=== PATIENT | male | born 1965 | race Caucasian/White ===

== ENCOUNTER 2016-07-03 00:34 | Emergency (ER) | payer BC ==
[2016-07-03] MEDS ORDERED: PROMETHAZINE HCL 25 MG/ML VIAL IVP ONE (00:52)
[2016-07-03] MEDS ORDERED: HYDROMORPHONE HCL 1 MG/ML CPJ IVP ONE ×2 (00:52→01:48)
[2016-07-03 01:30] LABS: BASO % 0.3 % (0-6); GRAN % 76.9 % (47-80); HEMOGLOBIN 15.1 gm/dl (14.0-18.0); LYMPH % 10.7 % (16-45); MEAN CORPUSCULAR HEMOGLOBIN 31.2 pg (27-33); MEAN CORPUSCULAR HGB CONC 33.6 g/dl (32-36); MEAN PLATELET VOLUME 10.8 fl (7.4-10.4); MONO % 10.1 % (0-9); PLATELET COUNT 168 K/uL (130-400); RED BLOOD COUNT 4.84 M/uL (4.40-5.70)
[2016-07-03 01:44] LABS: ANION GAP 11.3 (7-16); BLOOD UREA NITROGEN 15 mg/dL (9-20); CARBON DIOXIDE 26.7 mmol/L (22-30); CREATININE 0.8 mg/dL (0.66-1.25); EST GLOMERULAR FILTRATION RATE > 60 ml/min; GLUCOSE,RANDOM 116 mg/dL (70-110)
--- NOTE | 2016-07-03 02:17 | Emergency Department Record ---
History of Present Illness - General Chief Complaint: Knee injury Stated Complaint: RIGHT KNEE PAIN Time Seen by Provider: 07/03/16 00:47 Source: Patient Mode of Arrival: EMS Limitations: No limitations - History of Present Illness Initial Comments: pt has had knee pain this week which has fotten much worse. he doesnt recall injury but did mow the lawn. he states the knee initially felt like it needed to pop and now it feels like it is going to give out and is unstable. it also has swelling. Complaint: Knee injury Onset/Timin -: Days(s) Injury: Knee: Right Severity: Mild Severity scale (1-10): 4 Improves With: Rest Worsens With: Movement, Palpation, Weight bearing - Related Data Home Medications Medication Instructions Recorded Confirmed Last Taken Atorvastatin Calcium 20 mg PO DAILY 07/03/16 07/03/16 Unknown Quetiapine Fumarate [Seroquel] 12.5 mg PO BID 07/03/16 07/03/16 Unknown Sertraline HCl [Zoloft] 100 mg PO DAILY 07/03/16 07/03/16 Unknown Previous Rx's Medication Instructions Recorded Hydrocodone/Acetaminophen [[place] 1 each PO QID #10 tablet 07/03/16 5-325 Tablet] Allergies Allergy/AdvReac Type Severity Reaction Status Date / Time bupropion HCl Allergy Intermediate HIVES Unverified 07/24/15 08:50 [From Wellbutrin] azithromycin Allergy Mild RASH Unverified 07/24/15 08:50 Penicillins Allergy Mild HIVES Unverified 07/24/15 08:50 Sulfa (Sulfonamide Allergy Mild RASH Unverified 07/24/15 08:50 Antibiotics) Travel Screening - Travel/Exposure Within Last 30 Days Have you traveled within the last 30 days?: No - Travel/Exposure Within Last Year Have you traveled outside the [place] in the last year?: No - Additonal Travel Details Have you been exposed to anyone with a communicable illness?: No - Travel Symptoms Symptom Screening: None Review of Systems Reviewed: No additional complaints except as noted below Constitutional: Reports: As per HPI. Denies: Chills, Fever, Malaise, Night sweats, Weakness, Weight change Eyes: Reports: As per HPI. Denies: Eye discharge, Eye pain, Photophobia, Vision change ENT: Reports: As per HPI. Denies: Congestion, Dental pain, Ear pain, Epistaxis , Hearing loss, Throat pain Respiratory: Reports: As per HPI. Denies: Cough, Dyspnea, Hemoptysis, Stridor, Wheezes Cardiovascular: Reports: As per HPI. Denies: Arrhythmia, Chest pain, Dyspnea on exertion, Edema, Murmurs, Orthopnea, Palpitations, Paroxysmal nocturnal dyspnea, Rheumatic Fever, Syncope Endocrine: Reports: As per HPI. Denies: Fatigue, Heat or cold intolerance, Polydipsia, Polyuria Gastrointestinal: Reports: As per HPI. Denies: Abdominal pain, Constipation, Diarrhea, Hematemesis, Hematochezia, Melena, Nausea, Vomiting Genitourinary: Reports: As per HPI. Denies: Dysuria, Frequency, Hematuria, Incontinence, Retention, Testicular pain, Testicular mass, Urgency Musculoskeletal: Reports: As per HPI. Denies: Arthralgia, Back pain, Gout, Joint swelling, Myalgia, Neck pain Skin: Reports: As per HPI. Denies: Bruising, Change in color, Change in hair/ nails, Lesions, Pruritus, Rash Neurological: Reports: As per HPI. Denies: Abnormal gait, Confusion, Headache, Numbness, Paresthesias, Seizure, Tingling, Tremors, Vertigo, Weakness Psychiatric: Reports: As per HPI. Denies: Anxiety, Auditory hallucinations, Depression, Homicidal thoughts, Suicidal thoughts, Visual hallucinations Hematological/Lymphatic: Reports: As per HPI. Denies: Anemia, Blood Clots, Easy bleeding, Easy bruising, Swollen glands Past Medical History - SOCIAL HISTORY Smoking Status: Never smoker Alcohol Use: None Drug Use: Occassional Drug Use Detail:: Marijuana - RESPIRATORY Hx Respiratory Disorders: No - CARDIOVASCULAR Hx Cardio Disorders: Yes Comment:: high cholesterol - NEURO Hx Neuro Disorders: No - GI Hx GI Disorders: No - Hx Genitourinary Disorders: No - ENDOCRINE Hx Endocrine Disorders: No - MUSCULOSKELETAL Hx Musculoskeletal Disorders: No - PSYCH Hx Psych Problems: No - HEMATOLOGY/ONCOLOGY Hx Hematology/Oncology Disorders: No Family Medical History Any Significant Family History?: No Physical Exam - General General Appearance: Alert, Oriented x3, Cooperative, Mild distress - Head Head exam: Normal inspection - Eye Eye exam: Normal appearance, PERRL, EOMI Pupils: Normal accommodation - ENT ENT exam: Normal exam, Mucous membranes moist, Normal external ear exam, Normal orophraynx Ear exam: Normal external inspection. negative: External canal tenderness Nasal Exam: Normal inspection. negative: Discharge, Sinus tenderness Mouth exam: Normal external inspection, Tongue normal Teeth exam: Normal inspection. negative: Dental caries Throat exam: Normal inspection. negative: Tonsillar erythema, Tonsillar exudate - Neck Neck exam: Normal inspection, Full ROM. negative: Tenderness - Respiratory Respiratory exam: Normal lung sounds bilaterally. negative: Respiratory distress - Cardiovascular Cardiovascular Exam: Regular rate, Normal rhythm, Normal heart sounds - GI/Abdominal GI/Abdominal exam: Soft, Normal bowel sounds. negative: Tenderness - Rectal Rectal exam: Deferred - exam: Deferred - Extremities Extremities exam: Joint swelling, Normal capillary refill, Tenderness. negative : Full ROM - Back Back exam: Reports: Normal inspection, Full ROM. Denies: Muscle spasm, Rash noted, Tenderness - Neurological Neurological exam: Alert, CN II-XII intact, Normal gait, Oriented X3 - Psychiatric Psychiatric exam: Normal affect, Normal mood - Skin Skin exam: Dry, Intact, Normal color, Warm Course Vital Signs 07/03/16 07/03/16 00:39 01:42 Temperature 99.8 F H 99.6 F Pulse Rate 92 H Pulse Rate [ 85 Pulse Ox Probe] Respiratory 20 20 Rate Blood Pressure 140/93 Blood Pressure 118/72 [Left Arm] Pulse Ox 96 96 Medical Decision Making - Lab Data Result diagrams: 07/03/16 01:06 07/03/16 01:06 Lab Results 07/03/16 07/03/16 Range/Units 01:06 01:06 WBC 12.0 (4.2-12.2) K/uL RBC 4.84 (4.40-5.70) M/uL Hgb 15.1 (14.0-18.0) gm/dl Hct 45.0 (42.0-52.0) % MCV 93.0 (81-97) fl MCH 31.2 (27-33) pg MCHC 33.6 (32-36) g/dl RDW 13.0 (11.5-14.5) % Plt Count 168 (130-400) K/uL MPV 10.8 H (7.4-10.4) fl Gran % 76.9 (47-80) % Lymphocytes % 10.7 L (16-45) % Monocytes % 10.1 H (0-9) % Eosinophils % 2.0 (0-6) % Basophils % 0.3 (0-6) % Sodium 137 (136-145) mmol/L Potassium 4.0 (3.5-5.1) mmol/L Chloride 99 (98-107) mmol/L Carbon Dioxide 26.7 (22-30) mmol/L Anion Gap 11.3 (7-16) BUN 15 (9-20) mg/dL Creatinine 0.8 (0.66-1.25) mg/dL Estimated GFR > 60 ml/min Random Glucose 116 H (70-110) mg/dL Uric Acid 5.15 (3.5-8.5) mg/dL Calcium 9.1 (8.5-10.1) mg/dL Disposition Disposition: Discharge Clinical Impression: ACL (anterior cruciate ligament) tear Qualifiers: Encounter type: initial encounter Laterality: right Qualified Code(s): S83.511A - Sprain of anterior cruciate ligament of right knee, initial encounter Disposition: Home, Self-Care Condition: (1) Good Instructions: Anterior Cruciate Ligament Injury (ED), Knee Immobilizer (ED) Additional Instructions: recheck tomorrow if worse. follow up with orthopedics,dr pipe ramos. ice and elevate Prescriptions: Hydrocodone/Acetaminophen [[place] 5-325 Tablet] 1 each PO QID #10 tablet Referrals: CHAN GONZALEZ [DOCTOR OF OSTEOPATH] - Forms: Patient Portal Access, Return to Work/School
== END 2016-07-03 02:40 | disposition home or self-care (01) ==
LOC: ER 00:34
DX: S83.511A Sprain of anterior cruciate ligament of right knee, initial encounter (principal); X58.XXXA Exposure to other specified factors, initial encounter; Y93.H9 Activity, other involving exterior property and land maintenance, building and construction
CPT/HCPCS: 29505; 99284 ×2; 96376; 96374; 96375; 84550; 85025; 80048; 73564; J1170; J2550

== ENCOUNTER 2018-02-03 07:54 | Day surgery (SDC) | payer BC ==
[2018-02-03] MEDS ORDERED: PROPOFOL 10 MG/ML VIAL IV ONE (07:55)
[2018-02-03] MEDS ORDERED: LIDOCAINE 2% MDV (20MG/ML) 20ML VIAL IV ONE (07:55)
--- NOTE | 2018-02-04 10:10 | Operative Note ---
DATE OF SURGERY: 02/03/18 OPERATION: COLONOSCOPY with cold snare polypectomy. PREOPERATIVE DIAGNOSIS: Colon cancer screening, average risk. POSTOPERATIVE DIAGNOSIS: Distal transverse colon polyp, status post cold snare polypectomy. SPECIMENS: Transverse colon polyp. ESTIMATED BLOOD LOSS: Minimum. COMPLICATIONS: None apparent. PREPARATION QUALITY: Good at best. PROCEDURE: After informed consent was obtained from the patient, he was placed in the left lateral decubitus position in the endoscopy suite, sedated and monitored by the department of anesthesia. Digital rectal examination was unremarkable. A well-lubricated [id number] colonoscope was inserted into the rectum and advanced to the cecum. Preparation quality was good. The cecum, cecal bulb, ileocecal valve, appendiceal orifice, and ascending colon were unremarkable. The distal transverse colon revealed a 5 mm sessile polyp which was removed with a cold snare. Minimal bleeding was noted and the polyp was retrieved without incident. The remainder of the transverse colon, descending colon, sigmoid colon, and rectum were unremarkable. Forward and J-turn views of the rectum and anorectum were unrevealing. The endoscope was straightened, the rectal ampulla deflated, and the endoscope was removed. RECOMMENDATIONS: The patient will require repeat exam in 3-5 years pending tissue histology. Should resume his medications and diet. As always, thank you for allowing me to participate in the healthcare of your patients. CC: DO VELMA Reina
== END 2018-02-03 09:10 | disposition home or self-care (01) ==
LOC: HOP 07:54
PROVIDERS: ATTEND Internal Medicine Gastroenterology
DX: Z12.11 Encounter for screening for malignant neoplasm of colon (principal); D12.3 Benign neoplasm of transverse colon; E78.00 Pure hypercholesterolemia, unspecified